=== PATIENT | male | born 1955 | race Caucasian/White ===

== ENCOUNTER 2018-12-30 06:39 | Day surgery (SDC) | payer OTHER ==
[~2018-12-30] VITALS: Ht 182.9 cm; Wt 92.3 kg
[~2018-12-30 06:39] MED LIST: AMLO5 PO
== END 2018-12-30 08:55 | disposition home or self-care (01) ==
LOC: ORSCSDS 06:39
PROVIDERS: Internal Medicine Gastroenterology
PROC: 0DBN8ZX Excision of Sigmoid Colon, Via Natural or Artificial Opening Endoscopic, Diagnostic (ICD-10-PCS; principal; 2018-12-30 08:00)
PROC: 0DBH8ZX Excision of Cecum, Via Natural or Artificial Opening Endoscopic, Diagnostic (ICD-10-PCS; principal; 2018-12-30 08:00)
DX: Z12.11 Encounter for screening for malignant neoplasm of colon (principal); D12.0 Benign neoplasm of cecum; D12.5 Benign neoplasm of sigmoid colon; Z86.010 Personal history of colon polyps; K57.30 Diverticulosis of large intestine without perforation or abscess without bleeding; K64.8 Other hemorrhoids; Z79.899 Other long term (current) drug therapy
CPT/HCPCS: 88305; J0330; J1980; J2405; J7120

== ENCOUNTER 2019-04-08 10:43 | Inpatient (IN) | payer OTHER ==
[~2019-04-08] VITALS: Ht 182.9 cm; Wt 92.4 kg
[2019-04-08 11:02] LABS: Hematocrit 44.8 % (37.0-53.0); Hemoglobin 15.5 g/dL (13.5-17.5); Mean Corpuscular HGB 30.9 pg (26.0-34.0); Mean Corpuscular HGB Conc 34.6 g/dL (31.5-36.5); Mean Corpuscular Volume 89 fL (80-100); Mean Platelet Volume 10.1 fL (9.1-12.4); Platelet Count 339 K/mm3 (150-400); RDW Coefficient Variation 13.3 % (11.7-14.2); RDW Standard Deviation 43.6 fL (35.1-46.3); Red Blood Cell Count 5.01 M/mm3 (4.30-5.90); White Blood Cell Count 10.13 K/mm3 (4.00-11.30)
[2019-04-08 11:13] LABS: Prothrombin Time Results 10.6 Sec (9.7-11.5)
[2019-04-08 11:29] LABS: Anion Gap 12 mmol/L (6-16); Blood Urea Nitrogen 19 mg/dL (8-24); CHOL/HDL RATIO 4.1; CO2, Blood 21 mmol/L (21-32); CPK Creatine Kinase 203 U/L (39-308); Calcium, Blood 9.9 mg/dL (8.5-10.1); Chloride, Blood 105 mmol/L (98-108); Cholesterol 188 mg/dL (50-200); Creatine Kinase MB 3.4 ng/mL (0.0-3.6); Creatine Kinase MB Index 1.7 (0.0-4.0); Creatinine, Blood 1.27 mg/dL (0.60-1.20); Glomerular Filtration Rate >60 (60-); Glucose, Blood 139 mg/dL (70-99); HDL Cholesterol 46 mg/dL (>39); LDL/HDL RATIO 2.5; Low Density Lipoprotein Chol 115 mg/dL (0-110); Magnesium, Blood 1.7 mg/dL (1.6-2.4); Potassium, Blood 3.1 mmol/L (3.5-5.5); Sodium, Blood 138 mmol/L (136-145); Triglycerides 133 mg/dL (30-160); Troponin I 0.126 ng/mL (0.000-0.040); Very Low Density Lipoprot Chol 26 mg/dL (6-32)
--- NOTE | 2019-04-08 13:00 | NUR ---
PATIENT ARIVED TO ICU 2 VIA ICU BED FROM BOTTLING MACHINE OPERATOR AT 1205, REPORT WAS GIVEN VIA PHONE, PATIENT RECEIVED STENT TO PROXIMAL LAD, PATIENT WAS PLACED ON MONITOR, AND REPORTED PAIN 4/10, SUDDENLY PATIENT C/O 10/10 PAIN AND VERBALIZED THE INCREASING URGE TO URINATE, NO ORDERS HAD BEEN PLACED AT THE TIME AND SL NITRO WAS PULLED OUT OF PYXIS, AND PATIENT RECEIVED ONE NITRO SL EACH AT 1229 AND 1235 RESPECTIVELY, PAIN DID NOT SUBSIDE AND PATIENT RECEIVED 4 MG MORPHINE IV WHICH WAS ALSO OVERRIDEN FROM PYXIS, EKG WAS DONE AT BEDSIDE, DR. PETERSEN CALLED, DR. WALDRON AT BEDSIDE AND GAVE ORDERS FOR AGGRASTAT DRIP AND BOLUS, PATIENT ALSO HAD KAY CATHETER PLACED TO BE ABLE TO URINATE, IMMEDIAATELY HAD 700 CC OF CLEAR YELLOW URINE OUT, THEN PATIENT BECAME NAUSEOUS AND HAD TO VOMIT A SMALL AMOUNT OF YELLOW EMESIS, DURING VOMITING PRESSURE WAS HELD ON RIGHT GROIN TO AVOID REBLEEDING, DR. PETERSEN AT BEDSIDE AND TOLD THIS RN TO HOLD OFF ON AGGRASTA DRIP, WILL TAKE PATIENT BACK TO BOTTLING MACHINE OPERATOR, ORDERED 180 MG OF BRILANTA TO BE GIVEN NOW,KEITH GARCIA, PHARMACIST NOTIFIED, AND MED GIVEN, CALL LIGHT IN REACH, WILL CONTINUE TO MONITOR.
--- NOTE | 2019-04-08 13:28 | NUR ---
NITRO DRIP IV STARTED AT 50 MCG, AND BRILINTA 180 MG PO GIVEN ORDERED BY DR. PETERSEN, PATIENT CONTINUES TO HAVE 6/10 PAIN, CALL LIGHT IN REACH, AT BEDSIDE, WILL CONTINUE TO MONITOR.
--- NOTE | 2019-04-08 13:36 | NUR ---
PATIENT TAKEN TO SALES REPRESENTATIVE GIRLS' APPAREL AT 1333 VIA BED FROM ROOM ICU 2.
--- NOTE | 2019-04-08 15:15 | NUR ---
PATIENT RETURNED FROM SECOND RUBBER GRINDER PROCEDURE AT 1435 HOURS, STILL SEDATED AND SLEEPY, RIGHT RADIAL SITE HAS TR BAND APPLIED AT 12 CC OR AIR AT THIS TIME, SITE SHOWS SLIGHT OOZING OF BLOOD, PATIENT IS ABLE TO WIGGLE FINGERS, REPORTS SENSATION IN RIGHT HAND, DENIES PAIN, RIGHT HAND FEELS WARM TO THE TOUCH, RIGHT GROIN SITE SHOWS NO BLEEDING, SOFT ON PALPATION, PATIENT REPORTS NO PAIN, CALL LIGHT IN REACH, AT BEDSIDE, WILL CONTINUE TO MONITOR.
--- NOTE | 2019-04-08 15:24 | NUR ---
ADDENDUM TO NOTES: PATIENT ARRIVED AT ICU 2 FROM CNC MAINTENANCE TECHNICIAN AT 1205, RIGHT GROIN SITE WAS ACCESSED AND MYNX CLOSURE DEVICE USED, COVERED WITH TEGADERM CHG, SITE WAS ASSESSED EVERY 15 MINUTES UNTIL PATIENT WAS TAKEN TO CNC MAINTENANCE TECHNICIAN FOR SECOND PROCEDURE AT 1333, SITE SHOWED NO BLEEDING, SOFT AND NONTENDER ON PALPATION. UPON RETURN TO ICU 2 AT 1435 AFTER SECOND PROCEDURE RIGHT GROIN SITE STILL SHOWED NO BLEEDING, SOFT AND NONTENDER ON PALPATION.
[2019-04-08 15:25] LABS: Source, Urine Catheter
[2019-04-08 15:30] LABS: Appearance, Urine Clear (Clear); Bilirubin, Urine Neg (Neg); Blood, Urine Neg (Neg); Color, Urine Yellow (P-Yellow); Glucose Qualitative, Urine Neg (Neg); Ketones, Urine 2+ (Neg); Leukocyte Esterase, Urine Neg (Neg); Nitrite, Urine Neg (Neg); Protein, Urine Neg (Neg); Urobilinogen, Urine NORM (Normal)
--- NOTE | 2019-04-08 17:29 | NUR ---
TR BAND ON RIGHT RADIAL WAS SLOWLY DEFLATED BY 2 CC'S EVERY 5-10 MINUTES, WHEN REMAINING PRESSURE REACHED 6 CC'S, PATIENT'S PUNCTURE SITE STARTED TO REBLEED, TR BAND WAS REINFLATED TO 12 CC'S, PATIENT REPORTED NO DISTRESS, CALL LIGHT IN REACH, WILL CONTINUE TO MONITOR, AND ATTEMPT DEFLATION AGAIN IN ONE HOUR, PATIENT IS ON AGGREGATE DRIP AND NITRO DRIP.
--- NOTE | 2019-04-08 17:55 | NUR ---
SHIFT SUMMARY NOTE: PATIENT ARRIVED FROM MONONITROTOLUENE OPERATOR AT 1205, RIGHT GROIN SITE SOFT, NONTENDER, NO HEMATOMA NOTED, NO BLEEDING PRESENT, PATIENT C/O EXCRUCIATING CHEST PAIN 10/10, RECEIVED SL NITRO TWICE, AND 4 MG MORPHINE IV ONCE, DR. WALDRON AT BEDSIDE, ORDERS RECEIVED, DR. PETERSEN AT BEDSIDE, EKG DONE, PATIENT TAKEN BACK TO MONONITROTOLUENE OPERATOR FOR SECOND CATH VIA RIGHT RADIAL, RETURNED TO ROOM WITH TR BAND IN PLACE, ALSO ON NITRO DRIP AT 50 AND AGGRASTAT DRIP AT 0.153 MCG/KG/MIN, ATTEMPT TO REMOVE TR BAND WAS STOPPED AT 6 CC'S REMAINING IN CUFF, SITE STARTED TO REBLEED, TR BAND WAS REINFLATED TO 12 CC'S, WILL ATTEMPT DEFLATION IN ONE HOUR, DR. BELTRAN WAS CONSULTED FOR ROUTINE MEDICAL MANAGEMENT, CALL LIGHT IN REACH, WILL CONTINUE TO MONITOR.
--- NOTE | 2019-04-08 19:15 | NUR ---
ASSUMED CARE REPORT AND ASSESSMENT COMPLETED. PT S/P RN BURN X 2 TODAY FOR STEMI. PT REPORTS 2-3/10 NONRADIATING, SUBSTERNAL CP, DENIES NAUSEA AND REPORTS HE IS FEELING MUCH BETTER THAN EARIER TODAY. IN ROOM, QUESTIONS ANSWERED, EDUCATION RE MEDS AND GOALS OVERNIGHT AND PT NEEDING TO REPORT CHANGE OR INCREASE IN CP. AGGRASTAT GTT AT 16.5ML/HR WITH PLAN TO STOP AT 0800 FOR 18 HOUR RUN TIME. NITRO GTT AT 50MCG/MIN AND NS AT 75ML/HR. ISTRATE HERE FOR HOSPITALIST CONSULT AND ADDING ORDERS. VSS, ECG SHOWS SR AND O2 AT 2L/NC OFF W/ SATS >95%.
[2019-04-08 20:35] LABS: Creatine Kinase MB 52.9 ng/mL (0.0-3.6); Creatine Kinase MB Index 9.4 (0.0-4.0); Magnesium, Blood 1.8 mg/dL (1.6-2.4)
[2019-04-08 20:55] LABS: Phosphorus, Blood 3.5 mg/dL (2.5-4.9); Troponin I 9.83 ng/mL (0.000-0.040)
--- NOTE | 2019-04-08 21:07 | NUR ---
CALL TO DR PETERSEN UPDATED ON NEW HEPARIN ORDER, AND PT REMAINS ON AGGRASTAT UNTIL 0[address]. [address] PETERSEN, NO NEED FOR HEPARIN NOW. UPDATED ON OOZING RT RADIAL SITE AND 5ML OR AIR REMAINING AFTER CLEANING SITE AND ADDING HEMOSTATIC DRESSING, PER DR PETERSEN, TURN OFF AGGRASTAT FOR 30-60 MINUTES, HOLD MANUAL PRESSURE TO RT RADIAL AND RESTART AGGRASTAT 2 HOURS AFTER HEMOSTASIS OF RT RADIAL SITE. ALSO UPDATE ON PT REPORTING HE IS FEELING BETTER BUT STILL HAS SOME CP 2-3/10 SUBSTERNAL NON-RADIATING, NAUSEA AND MOST RECENT TROPONIN.
--- NOTE | 2019-04-08 22:00 | NUR ---
TR BAND AGGRASTAT OFF AT [address] PETERSEN. ALL AIR REMOVED FROM TR BAND AT THIS TIME. NO BLOOD STRIKE THROUGH TO VALERI DRESSING. TR BAND REMAINS IN PLACE WITHOUT ANY AIR FOR NOW. PLAN TO REMOVE AT 2300 AND RESTART AGGRASTAT AT 0000. OFF TIME ON AGGRASTAT NOW AT 1100 TOMORROW.
--- NOTE | 2019-04-09 | NUR ---
UPDATE RT RADIAL ACCESS SITE REMAINS C/D/I, SITE IS SOFT, NONTENDER WITH + DISTAL CSM TO FINGERS. TR BAND REMOVED AT 2300 & SITE DRESSED WITH CLEAR DRESSING. PT REPORTS HE HAS NO CHEST PAIN BUT CONTINUES TO HAVE OCCASIONAL GI UPSTET. AGGRASTAT RESUMED PER DR PETERSEN AT 16.5ML/HR AND NTG GTT REMAINS AT 50MCG/MIN AND NS AR 125ML/HR, #2/3 K RIDERS INFUSING.
[2019-04-09 04:29] LABS: BASOPHILS ABSOLUTE AUTO 0.02 K/mm3 (0.00-0.23); BASOPHILS PERCENT AUTO 0 % (0-2); EOSINOPHILS PERCENT AUTO 0 % (0-6); Hematocrit 37.2 % (37.0-53.0); Hemoglobin 12.6 g/dL (13.5-17.5); IMMATURE GRAN ABSOLUTE AUTO 0.05 K/mm3 (0.00-0.10); IMMATURE GRAN PERCENT AUTO 0 % (0-1); LYMPHOCYTES ABSOLUTE AUTO 1.77 K/mm3 (0.84-5.20); LYMPHOCYTES PERCENT AUTO 12 % (21-46); MONOCYTES ABSOLUTE AUTO 1.08 K/mm3 (0.16-1.47); MONOCYTES PERCENT AUTO 8 % (4-13); Mean Corpuscular HGB 31.2 pg (26.0-34.0); Mean Corpuscular HGB Conc 33.9 g/dL (31.5-36.5); Mean Platelet Volume 10.2 fL (9.1-12.4); NEUTROPHILS ABSOLUTE AUTO 11.45 K/mm3 (1.96-9.15); NEUTROPHILS PERCENT AUTO 80 % (41-73); Platelet Count 279 K/mm3 (150-400); RDW Coefficient Variation 13.5 % (11.7-14.2); RDW Standard Deviation 46.1 fL (35.1-46.3); Red Blood Cell Count 4.04 M/mm3 (4.30-5.90); White Blood Cell Count 14.37 K/mm3 (4.00-11.30)
[2019-04-09 04:30] LABS: Mean Corpuscular Volume 92 fL (80-100)
[2019-04-09 04:52] LABS: Creatine Kinase MB 95.6 ng/mL (0.0-3.6)
[2019-04-09 04:53] LABS: Alanine Aminotransfer (ALT/SGP 42 U/L (12-78); Albumin, Blood 3.4 g/dL (3.4-5.0); Albumin/Globulin Ratio 1.2 (0.8-1.8); Alk Phos 54 U/L (50-136); Anion Gap 8 mmol/L (6-16); Aspartate Aminotrans (AST/SGOT 96 U/L (12-37); Bilirubin, Total 0.9 mg/dL (0.1-1.0); Blood Urea Nitrogen 15 mg/dL (8-24); Bun/Creatinine Ratio 12.7 (12.0-20.0); CO2, Blood 25 mmol/L (21-32); Calcium, Blood 8.3 mg/dL (8.5-10.1); Chloride, Blood 104 mmol/L (98-108); Creatinine, Blood 1.18 mg/dL (0.60-1.20); Globulin, Blood 2.9 g/dL (2.2-4.0); Glomerular Filtration Rate >60 (60-); Glucose, Blood 112 mg/dL (70-99); Phosphorus, Blood 3.4 mg/dL (2.5-4.9); Potassium, Blood 4.4 mmol/L (3.5-5.5); Sodium, Blood 137 mmol/L (136-145); Total Protein, Blood 6.3 g/dL (6.4-8.2)
[2019-04-09 04:59] LABS: Troponin I 19.4 ng/mL (0.000-0.040)
[2019-04-09 05:00] LABS: Creatine Kinase MB Index 8.4 (0.0-4.0)
--- NOTE | 2019-04-09 06:08 | NUR ---
SHIFT SUMMARY PT CURRENTLY CHEST PAIN FREE, DOES OCCASIONALLY REPORT THAT HIS STOMACH IS NOT FEELING GREAT; PT TOLERATING WATER WELL AND SMALL BITES OF CRACKERS/PUDDING. NTG HAS BEEN TITRATED DOWN FROM 50 TO 10MCG/MIN, AGGRASTAT AT 16.5ML/HR AND NS AT 125ML/HR. FC DC'S THIS AM ONCE PT ABLE TO GET OOB TO BATHROOM. PT SAT UP IN CHAIR FOR APPROX 30 MINUTES. VSS, ECG SHOWS SR/SB, O2 SATS 93-95 ON RA.
--- NOTE | 2019-04-09 07:15 | NUR ---
START OF SHIFT NOTE: PATIENT IS AWAKE AND ALERT AND ORIENTED THIS AM, PATIENT DENIES CHEST PAIN OR PRESSURE, REPORTS NO SOB OR N/V, AFEBRILE, ON RA SATING IN MID TO UPPER 90'S, NSR WITH HR BETWEEN UPPER 50'S AND 70'S, LUNG SOUNDS ARE CLEAR, BOWEL TONES PRESENT, PATIENT STATED "I AM HUNGRY THIS MORNING", PATIENT HAD KAY CATHETER REMOVED LAST NIGHT AND IS VOIDING WITHOUT ANY PROBLEMS, HEEL SEAT FITTER IN ROOM TO DO ORDERED TEST, CALL LIGHT IN REACH, WILL CONTINUE TO MONITOR.
--- NOTE | 2019-04-09 08:19 | NUR ---
PATIENT UP TO ROOM TOILET, USES CALL LIGHT APPROPRIATELY, CALLED TO BE RETURNED TO BED, REPOSITIONED FOR BREAKFAST, CALL LIGHT IN REACH, WILL CONTINUE TO MONITOR.
--- NOTE | 2019-04-09 09:20 | NUR ---
PATIENT TOOK AM MEDICATIONS WITHOUT ANY PROBLEM SWALLOWING, UP TO TOILET MULTIPLE TIMES VOIDING THIS AM, NOW AT BEDSIDE, CALL LIGHT IN REACH, WILL CONTINUE TO MONITOR.
--- NOTE | 2019-04-09 10:53 | NUR ---
AGGRASTAT DRIP STOPPED AT 1045 PER PROTOCOL.
--- NOTE | 2019-04-09 11:47 | NUR ---
echocardiogram completed
--- NOTE | 2019-04-09 12:27 | NUR ---
PATIENT EATING LUNCH, CONTINUES TO DENY CHEST PAIN/PRESSURE, AFEBRILE, FAMILY AT BEDSIDE, UP IN ROOM WITH SBA ONLY, CALL LIGHT IN REACH, WILL CONTINUE TO MONITOR.
[2019-04-09 12:49] LABS: Creatine Kinase MB 120.8 ng/mL (0.0-3.6)
--- NOTE | 2019-04-09 13:03 | NUR ---
DR. PETRESEN IN TO SEE PATIENT, NEW ORDERS RECEIVED.
[2019-04-09 13:18] LABS: Creatine Kinase MB Index 7.2 (0.0-4.0); Troponin I 30.8 ng/mL (0.000-0.040)
--- NOTE | 2019-04-09 17:33 | NUR ---
DR. MONREAL IN TO SEE PATIENT, NO NEW ORDERS RECEIVED.
--- NOTE | 2019-04-09 17:41 | NUR ---
SHIFT SUMMARY NOTE: NO EVENTS DURING THIS SHIFT, PATIENT CONTINUES TO DO WELL, DENIES CHEST PAIN/PRESSURE, NO SOB, RIGHT RADIAL SITE AND RIGHT GROIN SITE SHOW NO BLEEDING, NO HEMATOMA, SOFT AND NONTENDER ON PALPATION, PATIENT DENIES PAIN OVERALL, AFEBRILE, LUNG SOUNDS CLEAR, UP TO ROOM TOILET WITH SBA, STEADY GAIT, REPORTS NO LIGHTHEADEDNESS OR DIZZINESS, NITRO AND AGGRASTAT DRIPS ARE OFF, PATIENT IS EATING AND DRINKING WELL, POSSIBLE DISCHARGE HOME TOMORROW, FOR DETAILS SEE SHIFT ASSESSMENT DOCUMENTATION AND NURSES NOTES, CALL LIGHT IN REACH, WILL CONTINUE TO MONITOR AND GIVE REPORT TO ONCOMING GUEST SERVICE HOST.
--- NOTE | 2019-04-09 20:23 | NUR ---
CARE ASSUMED REPORT RECEIVED, CARE ASSUMED AT 1900. VITALS STABLE. PT DENIES CHEST PAIN/DISCOMFORT OR DIZZINESS. WRITTEN EDUCATION PROVIDED ON CARDIAC DIET AND NEW MEDICATIONS. REVIEWED WITH PT. PT INDEPENDENT IN ROOM, CALLS APPROPRIATELY FOR NEEDS.
--- NOTE | 2019-04-10 06:36 | NUR ---
SUMMARY NO ACUTE CHANGES THROUGHOUT SHIFT. VITALS STABLE. ASSESSMENTS UNCHANGED. DENIES CHEST PAIN THROUGHOUT SHIFT. RADIAL AND GROIN SITE ASSESSMENTS UNCHANGED. UP IN ROOM INDEPEDENTLY FOR BATHROOM USE, BUT OTHERWISE CALLING FOR NEEDS.
--- NOTE | 2019-04-10 10:03 | NUR ---
0700: CARE ASSUMED, PT LYING IN BED RESTING, DENIES CHEST PAIN/PRESSURE AND SOB, VSS. PT DENIES NEEDS AT THIS TIME. 0800: ASSESSMENT COMPLETED, PT CONTINUES TO DENY CHEST PAIN/DISCOMFORT AND SOB. DRESSING TO RIGHT WRIST CDI, ARM BOARD REMAINS IN PLACE, NO EVIDENCE OF HEMATOMA NOTED. DRESSING TO RIGHT GROIN D/I WITH A 1CM [place] OF DRIED BLOOD DRAINAGE, NO FRESH LEAKING OR EVIDENCE OF HEMATOMA NOTED. PT REPORTS MINIMIAL TENDERNESS IN RIGHT GROIN, CMS WNL TO ALL EXTREMS. 0945: MEDICATIONS CLARIFIED WITH DR. PETERSEN, NEW ORDERS RECEIVED. HR 50'S, SBP 103. LISINOPRIL AND SPIRONOLACTONE ADMINISTERED AT THIS TIME, WILL WAIT TO ASSESS EFFECTS BEFORE ADMINISTERING METOPROLOL AND AMLODIPINE. PT TOLERATING PO WELL. 1000: LABS DRAWN, PT DENIES NEEDS, CP OR C/O.
[2019-04-10 10:17] LABS: BASOPHILS ABSOLUTE AUTO 0.02 K/mm3 (0.00-0.23); BASOPHILS PERCENT AUTO 0 % (0-2); EOSINOPHILS ABSOLUTE AUTO 0.01 K/mm3 (0.00-0.68); EOSINOPHILS PERCENT AUTO 0 % (0-6); Hematocrit 42.4 % (37.0-53.0); Hemoglobin 14.3 g/dL (13.5-17.5); IMMATURE GRAN ABSOLUTE AUTO 0.03 K/mm3 (0.00-0.10); IMMATURE GRAN PERCENT AUTO 0 % (0-1); LYMPHOCYTES ABSOLUTE AUTO 2.16 K/mm3 (0.84-5.20); LYMPHOCYTES PERCENT AUTO 18 % (21-46); MONOCYTES ABSOLUTE AUTO 0.89 K/mm3 (0.16-1.47); MONOCYTES PERCENT AUTO 8 % (4-13); Mean Corpuscular HGB 31.4 pg (26.0-34.0); Mean Corpuscular HGB Conc 33.7 g/dL (31.5-36.5); Mean Corpuscular Volume 93 fL (80-100); Mean Platelet Volume 10.5 fL (9.1-12.4); NEUTROPHILS ABSOLUTE AUTO 8.76 K/mm3 (1.96-9.15); NEUTROPHILS PERCENT AUTO 74 % (41-73); Platelet Count 258 K/mm3 (150-400); RDW Coefficient Variation 13.6 % (11.7-14.2); RDW Standard Deviation 46.5 fL (35.1-46.3); Red Blood Cell Count 4.55 M/mm3 (4.30-5.90); White Blood Cell Count 11.87 K/mm3 (4.00-11.30)
[2019-04-10 10:46] LABS: Alanine Aminotransfer (ALT/SGP 110 U/L (12-78); Albumin, Blood 3.6 g/dL (3.4-5.0); Alk Phos 96 U/L (50-136); Anion Gap 7 mmol/L (6-16); Aspartate Aminotrans (AST/SGOT 205 U/L (12-37); Bilirubin, Total 0.8 mg/dL (0.1-1.0); Blood Urea Nitrogen 15 mg/dL (8-24); Bun/Creatinine Ratio 12.6 (12.0-20.0); CO2, Blood 27 mmol/L (21-32); Calcium, Blood 8.5 mg/dL (8.5-10.1); Chloride, Blood 103 mmol/L (98-108); Creatinine, Blood 1.19 mg/dL (0.60-1.20); Globulin, Blood 3.5 g/dL (2.2-4.0); Glomerular Filtration Rate >60 (60-); Glucose, Blood 134 mg/dL (70-99); Potassium, Blood 3.8 mmol/L (3.5-5.5); Sodium, Blood 137 mmol/L (136-145); Total Protein, Blood 7.1 g/dL (6.4-8.2)
[2019-04-10] MEDS ORDERED: ASPI81CH PO (13:49)
[2019-04-10] MEDS ORDERED: LISI5 PO (13:50)
[2019-04-10] MEDS ORDERED: ATOR40TA PO (13:50)
[2019-04-10] MEDS ORDERED: TICA90TA PO (13:51)
[2019-04-10] MEDS ORDERED: Lopressor 25 mg25 MG PO (13:51)
[2019-04-10] MEDS ORDERED: SPIR25 PO (13:52)
--- NOTE | 2019-04-10 14:36 | NUR ---
1101: CRITICAL RESULTS RECEIVED, TROPONIN TRENDING TOWARDS NORMAL, DR. PETERSEN NOT NOTIFIED AT THIS TIME. 1200: DR. PETERSEN AT BEDSIDE TO SEE PT, AWARE OF TROPONIN, NO NEW ORDERS AT THIS TIME. VISITORS AT BEDSIDE, PT DENIES CHEST PAIN/PRESSURE, SOB, NAUSEA, OR OTHER C/O. VSS. 1330: PT SITTING UP IN BED EATING LUNCH, DENIES C/O. 1435: MEDICATION LIST FAXED TO [facility] PER PT REQUEST. IV'S DC'D WITH TIPS INTACT, PRESSURE DRESSINGS APPLIED. DRESSING REMOVED FROM RIGHT WRIST ACCESS POINT, NO HEMATOMA, BRUISING, OR BLEEDING PRESENT, RADIAL PULSE STRONG. PT STATES HE WILL REMOVE GROIN ACCESS DRESSING HIMSELF IN THE SHOWER LATER. PT GIVEN DC INSTRUCTIONS, IS TO F/U WITH [facility] AND DR. PETERSEN PER INSTRUCTIONS, PT KNOWS TO EMPLOYEE SERVICES MANAGER MEDICATIONS AT PHARMACY TONIGHT. VSS, PT CONTINUES TO DENY C/O OF CHEST PAIN/PRESSURE OR SOB, PT APPROPRIATE AND COOPERATIVE. PT DC TO HOME AT THIS TIME WITH FAMILY MEMBERS TO DRIVE HIM, DENIES C/O. GAIT STEADY UPON DISCHARGE.
== END 2019-04-10 15:00 | disposition home or self-care (01) | DRG 247 ==
LOC: ER 10:43 → ICUE 10:52 → ICUW 10:52 → ICUE 11:02
PROVIDERS: Emergency Medicine; Family Medicine; ADMIT Internal Medicine Interventional Cardiology
PROC: 4A023N7 Measurement of Cardiac Sampling and Pressure, Left Heart, Percutaneous Approach (ICD-10-PCS; principal; 2019-04-08)
PROC: 027034Z Dilation of Coronary Artery, One Artery with Drug-eluting Intraluminal Device, Percutaneous Approach (ICD-10-PCS; 2019-04-08)
PROC: 02703DZ Dilation of Coronary Artery, One Artery with Intraluminal Device, Percutaneous Approach (ICD-10-PCS; 2019-04-08)
PROC: B210YZZ Fluoroscopy of Single Coronary Artery using Other Contrast (ICD-10-PCS; 2019-04-08)
DX: I21.3 ST elevation (STEMI) myocardial infarction of unspecified site (principal); T82.867A Thrombosis due to cardiac prosthetic devices, implants and grafts, initial encounter; I10 Essential (primary) hypertension; E78.5 Hyperlipidemia, unspecified; E87.6 Hypokalemia; I24.0 Acute coronary thrombosis not resulting in myocardial infarction
CPT/HCPCS: 36415; 51702; 71045; 80048; 80053; 80061; 81003; 82550; 82553; 83735; 84100; 84443; 84484; 85025; 85027; 85610; 85730; 86850; 86900; 86901; 92941; 92978; 93005; 93010; 93306; 93454; 93458; 93571; 96374; 96375; 99152; 99153; 99285-25; C1725; C1753; C1757; C1760; C1769; C1874; C1887; C1894; C9606; J0461; J0780; J1170; J1644; J2001; J2060; J2250; J2270; J2405; J3010; J3246; J3475; J3480; J7030; Q9967

== ENCOUNTER → 2022-06-17 | Outpatient (CLI) | payer MEDICARE ==
[~2022-06-17] MED LIST changes: +ASPI81CH PO; +ATOR40TA PO; +LISI5 PO; +Lopressor 25 mg25 MG PO; +SPIR25 PO; +TICA90TA PO
== END | disposition home or self-care (01) ==
LOC: LAB 08:29 → LAB SHORT 08:29
DX: R82.81 Pyuria (principal)
CPT/HCPCS: 87086